=== PATIENT | male | born 1990 | race Caucasian/White ===

== ENCOUNTER 2021-05-07 01:20 | Emergency (ER) | payer OTHER ==
[2021-05-07] MEDS ORDERED: ONDANSETRON PF 4 MG/2 ML VIAL. ONE (02:08)
[2021-05-07] MEDS ORDERED: DEXAMETHASONE SOD PHOS 10 MG/ML VIAL. ONE (02:20)
[2021-05-07 06:14] LABS: ALBUMIN 3.8 g/dL (3.4-5.0); CALCIUM 8.3 mg/dL (8.5-10.1); CREATININE 1.2 mg/dL (0.7-1.3); DIRECT BILIRUBIN 0.2 mg/dL (0.0-0.2); GFR 70.6; POTASSIUM 3.7 mmol/L (3.5-5.1); TOTAL BILIRUBIN 0.6 mg/dL (0.2-1.0); TOTAL PROTEIN 7.5 g/dL (6.4-8.2)
[2021-05-07 06:21] LABS: BASO % 1 % (0-3); EOS % 0 % (0-3); HEMATOCRIT 45.1 % (39.0-53.0); LYMPH # 0.7 x10^3/uL (1.0-4.8); LYMPH % 22 % (24-48); MEAN CORPUSCULAR HEMOGLOBIN 33 pg (25-35); MEAN CORPUSCULAR HGB CONC 36 g/dL (31-37); MEAN CORPUSCULAR VOLUME 92 fL (79-100); MONO # 0.5 x10^3/uL (0.0-1.1); MONO % 17 % (0-9); NEUT % 61 % (31-73); PLATELET COUNT 131 x10^3/uL (140-400); RED BLOOD COUNT 4.91 x10^6/uL (4.30-5.70); RED CELL DISTRIBUTION WIDTH 11.8 % (11.5-14.5); WHITE BLOOD COUNT 3.3 x10^3/uL (4.0-11.0)
--- NOTE | 2021-05-07 08:39 | RAD ---
Single view of the chest. 05/07/2021 2:05 AM Indication: Reason: Short of air / Comparison: None Findings: There is no focal consolidation. There is no pleural effusion or pneumothorax. The cardiome diastinal silhouette and pulmonary vasculature are within normal limits. No acute osseous abnormaliti es are seen. Impression: No evidence of acute cardiopulmonary process. Electronically signed by: Selvin Waters MD (05/07/2021 8:37 AM) [id number]
== END 2021-05-07 03:15 | disposition home or self-care (01) ==
LOC: ER 01:20
DX: U07.1 COVID-19 (principal); R55 Syncope and collapse
CPT/HCPCS: 36415; 71045; 80048; 80076; 85025; 96361; 96374; 96375; 99284-25

== ENCOUNTER 2021-07-14 18:41 | Emergency (ER) | payer OTHER ==
[~2021-07-14] VITALS: Ht 167.6 cm; Wt 71.2 kg
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
--- NOTE | 2021-07-14 20:01 | EKG ---
[address] [address] Test Date: 2021-07-14 Test Time: 19:56:07 Pat Name: FITZ AVINA Department: Room: Gender: M Maintenance Technician: : 1990 Requested By: MIL SANCHEZ Order Number: [id number] Reading MD: Measurements Intervals [place] Rate: 107 P: 16 MD: 136 QRS: 28 QRSD: 88 T: 24 QT: 326 QTc: 435 Interpretive Statements SINUS TACHYCARDIA OTHERWISE NORMAL ECG RI6.02 No previous ECG available for comparison
[2021-07-14] MEDS: IBUPROFEN 600 MG TABLET. PO ONE (20:03)
[2021-07-14 20:43] LABS: INFLUENZA A PATIENT NEGATIVE (NEGATIVE); INFLUENZA B PATIENT NEGATIVE (NEGATIVE)
[2021-07-14 21:12] VITALS: BP 120/69
== END 2021-07-14 21:39 | disposition home or self-care (01) ==
LOC: ER 18:41
DX: J02.9 Acute pharyngitis, unspecified (principal); R50.9 Fever, unspecified; Z20.822 Contact with and (suspected) exposure to COVID-19
CPT/HCPCS: 87070; 87426; 87428; 87880; 93005; 99284; C9803; U0003